=== PATIENT | female | born 1950 ===

== ENCOUNTER → 2017-09-26 | Outpatient (CLI) | payer OTHER | END | disposition home or self-care (01) | LOC: NUCLEAR 11:00 | DX: I11.9 Hypertensive heart disease without heart failure (principal) ==

== ENCOUNTER 2020-01-17 12:11 | Outpatient (CLI) | payer OTHER | END 2020-01-17 12:37 | disposition home or self-care (01) | LOC: NUCLEAR 12:11 | PROVIDERS: ATTEND Specialist | DX: I80.03 Phlebitis and thrombophlebitis of superficial vessels of lower extremities, bilateral (principal) ==